=== PATIENT | male | born 1965 | race Caucasian/White ===

== ENCOUNTER → 2017-06-07 | Outpatient (CLI) | payer SELFPAY ==
--- NOTE | 2017-06-07 13:00 | CT ---
Indication: Hyperlipidemia, coronary calcium screening. Exam: CT calcium scoring screening Technique: Thin-section, EKG gated , axial spiral images were obtained through the heart and mediasti num without contrast for evaluation of calcium scoring. The raw data was reviewed and CT calcium scor ing was generated using the [employer] CT calcium scoring software. Findings: There is minimal calcium along the proximal left coronary artery proximally. No mediastinal mass or adenopathy is seen. The visualized lung barroso are clear. Total calcium Agatston score was c alculated at 19. The calcium score of 19 is between the 50th and 75th percentile for males between th e ages of 50 and 54. Impression: Total calcium score suggestive of definite, at least mild atherosclerotic plaque. There i s a mild or minimal risk of coronary artery narrowing. Recommend clinical follow-up. Reported By:
== END ==
LOC: RAD 10:14
PROVIDERS: ATTEND Internal Medicine
DX: Z13.6 Encounter for screening for cardiovascular disorders (principal)